=== PATIENT | female | born 1990 | race Caucasian/White ===

== ENCOUNTER 2016-08-23 20:35 | Outpatient (CLI) | payer BC ==
[~2016-08-23] VITALS: Ht 170.2 cm; Wt 75.9 kg
[2016-08-23 20:50] VITALS: BP 114/78; PULSE 80; TEMP 97.7
[2016-08-23 21:36] VITALS: BP 114/78; PULSE 80; TEMP 97.7
== END 2016-08-23 22:15 | disposition home or self-care (01) ==
LOC: LDRO 20:35
DX: O47.1 False labor at or after 37 completed weeks of gestation (principal); Z3A.39 39 weeks gestation of pregnancy

== ENCOUNTER 2016-08-24 21:04 | Outpatient (CLI) | payer BC ==
[~2016-08-24] VITALS: Ht 170.2 cm; Wt 77.3 kg
[2016-08-24 22:00] VITALS: BP 118/80; PULSE 88
[2016-08-24 22:30] VITALS: BP 111/81; PULSE 95
[2016-08-24 22:35] VITALS: BP 117/74; PULSE 104; TEMP 98.8
[2016-08-25] MEDS ORDERED: TIROSINT150 MC1 PO (04:24)
== END 2016-08-24 23:10 | disposition home or self-care (01) ==
LOC: LDRO 21:04
DX: O47.1 False labor at or after 37 completed weeks of gestation (principal); Z3A.39 39 weeks gestation of pregnancy

== ENCOUNTER 2016-08-25 03:30 | Inpatient (IN) | payer BC ==
[2016-08-25] VITALS (29 sets, daily range): BP systolic 91–127; BP diastolic 51–84; PULSE 73–129; TEMP 98–99.5
[~2016-08-25] VITALS: Ht 172.7 cm; Wt 75.5 kg
[2016-08-25] MEDS ORDERED: TIROSINT150 MC1 PO (04:24)
[2016-08-25 05:28] LABS: BASO % 0.2 % (0.0-2.0); EOS # 0.1 (0.0-0.7); EOS % 0.3 % (0-4.0); GRAN % 81.6 % (42.2-75.2); LYMPH # 1.9 (1.2-3.4); LYMPH % 11.1 % (20.0-51.0); MEAN CELL VOLUME 93 fl (80.0-100.0); MEAN CORPUSCULAR HEMOGLOBIN 32 pg (27.0-31.0); MEAN CORPUSCULAR HGB CONC 34 g/dl (33.0-37.0); MEAN PLATELET VOLUME 12.7 fl (7.4-10.4); MONO # 1.1 (0.1-0.6); MONO % 6.2 % (1.7-9.3); PLATELET COUNT 210 K/mm3 (130-400); RED BLOOD COUNT 4.39 M/mm3 (4.10-5.30); REDCELL DISTRIBUTION WIDTH-CV 13.5 % (11.5-14.5); WHITE BLOOD COUNT 17.2 K/mm3 (4.8-10.8)
[2016-08-26 07:24] LABS: BASO % 0.2 % (0.0-2.0); EOS # 0.1 (0.0-0.7); EOS % 0.4 % (0-4.0); GRAN # 13.3 (1.4-6.5); GRAN % 73.5 % (42.2-75.2); LYMPH % 16.8 % (20.0-51.0); MEAN CELL VOLUME 96 fl (80.0-100.0); MEAN CORPUSCULAR HGB CONC 34 g/dl (33.0-37.0); MEAN PLATELET VOLUME 12.2 fl (7.4-10.4); MONO # 1.5 (0.1-0.6); MONO % 8.3 % (1.7-9.3); PLATELET COUNT 175 K/mm3 (130-400); RED BLOOD COUNT 3.37 M/mm3 (4.10-5.30); REDCELL DISTRIBUTION WIDTH-CV 13.7 % (11.5-14.5); WHITE BLOOD COUNT 18.1 K/mm3 (4.8-10.8)
[2016-08-26 07:49] LABS: HEMATOCRIT 32.3 % (37.0-47.0); MEAN CORPUSCULAR HEMOGLOBIN 33 pg (27.0-31.0)
[2016-08-26 09:00] VITALS: BP 99/70; PULSE 92; TEMP 97.8
[2016-08-26 16:21] VITALS: BP 100/64; PULSE 79; TEMP 97.3
[2016-08-27 07:05] VITALS: BP 98/66; PULSE 77; TEMP 97.6
[2016-08-27] MEDS ORDERED: IBU800 M1 PO (09:37)
[2016-08-27] MEDS ORDERED: PERCOCET 325 MG1 TA2 PO (09:37)
== END 2016-08-27 11:50 | disposition home or self-care (01) | DRG 775 ==
LOC: LDRO 03:30 → LDR 04:30 → OB 12:50 → LDRO 08-28 14:31
PROVIDERS: Obstetrics & Gynecology; Student in an Organized Health Care Education/Training Program
PROC: 10D07Z6 Extraction of Products of Conception, Vacuum, Via Natural or Artificial Opening (ICD-10-PCS; principal; 2016-08-25)
PROC: 0W8NXZZ Division of Female Perineum, External Approach (ICD-10-PCS; 2016-08-25)
DX: O99.283 Endocrine, nutritional and metabolic diseases complicating pregnancy, third trimester (principal); E06.3 Autoimmune thyroiditis; O76 Abnormality in fetal heart rate and rhythm complicating labor and delivery; O75.89 Other specified complications of labor and delivery; Z3A.39 39 weeks gestation of pregnancy
CPT/HCPCS: J2210; J2590; J2795; J7120

== ENCOUNTER → 2017-06-18 | Outpatient (CLI) | payer BC ==
[~2017-06-18] MED LIST: IBU800 M1 PO; PERCOCET 325 MG1 TA2 PO; TIROSINT150 MC1 PO
[2017-06-18 10:36] LABS: BASO % 0.4 % (0.0-2.0); EOS # 0.3 (0.0-0.7); EOS % 4.8 % (0-4.0); GRAN # 3.3 (1.4-6.5); GRAN % 48.2 % (42.2-75.2); HEMATOCRIT 44.2 % (37.0-47.0); HEMOGLOBIN 14.5 g/dl (12.5-16.0); LYMPH # 2.7 (1.2-3.4); LYMPH % 40.1 % (20.0-51.0); MEAN CELL VOLUME 96 fl (80.0-100.0); MEAN CORPUSCULAR HEMOGLOBIN 32 pg (27.0-31.0); MEAN CORPUSCULAR HGB CONC 33 g/dl (33.0-37.0); MEAN PLATELET VOLUME 11.8 fl (7.4-10.4); MONO # 0.4 (0.1-0.6); MONO % 6.4 % (1.7-9.3); PLATELET COUNT 303 K/mm3 (130-400); RED BLOOD COUNT 4.61 M/mm3 (4.10-5.30); REDCELL DISTRIBUTION WIDTH-CV 12.5 % (11.5-14.5)
[2017-06-18 10:43] LABS: ALBUMIN 4.9 gm/dL (3.5-5.0); BILIRUBIN,TOTAL 0.7 mg/dL (0.0-1.0); CALCIUM 9.3 mg/dL (8.4-10.2); CHOLESTEROL RISK RATIO 1.5; CREATININE, serum 0.62 mg/dL (0.52-1.25); POTASSIUM 4.4 mmol/L (3.4-5.0); TOTAL PROTEIN 7.7 gm/dL (6.4-8.2)
[2017-06-18 11:13] LABS: THYROID STIMULATING HORMONE 11.1 uIU/mL (0.465-4.680)
== END ==
LOC: ZCOL.LAB 10:21
PROVIDERS: Internal Medicine
DX: Z00.00 Encounter for general adult medical examination without abnormal findings (principal); E03.9 Hypothyroidism, unspecified

== ENCOUNTER → 2020-10-11 | Outpatient (CLI) | payer BC | LOC: COL.RAD 13:36 | DX: E04.9 Nontoxic goiter, unspecified (principal) ==